=== PATIENT | male | born 1985 | race Caucasian/White ===

== ENCOUNTER 2019-06-04 12:31 | Emergency (ER) | payer OTHER, SELFPAY ==
[2019-06-04 12:39] VITALS: BP 106/51; PULSE 95; RESP 17; TEMP 36.8; O2SAT 100
--- NOTE | 2019-06-04 15:05 | ED.SKABFB ---
HPI - Skin/Abscess/Foreign Bdy General Chief complaint: Skin/Abscess/Foreign Body Stated complaint: KNEE WOUND Time Seen by Provider: 06/04/19 13:46 Source: patient Mode of arrival: ambulatory Limitations: no limitations History of Present Illness HPI narrative: Patient presents with chief complaint of swelling erythema to the anterior aspect of his right knee. Patient states last he had the [facility] I&D [facility] or [facility]. Patient states he was given a prescription for Bactrim but he only has been taking it once daily. Patient states these swelling to the anterior aspect of his right knee has continued to be present. Patient states the area started draining a large amount however when he takes off his bandage he sees some light green drainage. Patient denies fever, chills, nausea, vomiting, streaking of erythema, loss of range of motion to the joint. Patient states he is allergic to penicillin but denies allergies to any other medications. Patient states he has had cellulitis in the past and had good results with clindamycin. Related Data Home Medications Medication Instructions Recorded Confirmed metoprolol tartrate 25 mg PO BID 06/04/19 sulfamethoxazole-trimethoprim 1 tablet PO Q12H 06/04/19 [Bactrim DS] Allergies Allergy/AdvReac Type Severity Reaction Status Date / Time Penicillins Allergy Mild Verified 12/11/18 19:27 Review of Systems Review of Systems: Narrative: CONSTITUTIONAL: Denies fever, chills, or sweats. EYES: Denies visual changes, redness, or discharge. ENT: Denies rhinorrhea, congestion, sore throat, or otalgia. CARDIOVASCULAR: Denies chest pain, palpitations, or edema. RESPIRATORY: Denies cough or dyspnea. GASTROINTESTINAL: Denies abdominal pain, nausea, vomiting, or diarrhea. GENITOURINARY: Denies dysuria or hematuria. SKIN: Reports erythema and swelling right knee. MUSCULOSKELETAL: Denies back pain, joint pain, or myalgia. NEUROLOGIC: Denies headache, numbness, dizziness, or weakness. PSYCHIATRIC: Denies anxiety or depression. PMFSH Social History Social History Gender identity (if verbalized by the patient): Male Exam Narrative: Exam Narrative: GENERAL: Well-appearing, well-nourished, and in no acute distress. HEAD: Normocephalic, atraumatic. EYES: PERRLA and EOMI. ENT: Nares clear, no rhinorrhea or epistaxis. Mucous membranes moist. Oropharynx without tonsillar hypertrophy exudate or other lesions. Bilateral TMs pearly hardin nonbulging NECK: Supple. No adenopathy or masses. No carotid bruits or JVD CHEST: Clear to auscultation. No respiratory distress. No wheezes rales or rhonchi HEART: Regular rate and rhythm. No murmur heard. Normal peripheral pulses. EXTREMITIES: Normal range of motion. Small abscesses with surrounding erythema to the anterior aspect of right knee. There is no streaking, circumferential cellulitis. Minimal drainage noted to dressing but unable to express discharge by pressing the area. SKIN: Warm, dry, no rash. NEURO: No focal deficits. Alert and oriented x3. PSYCH: Normal mood and affect. Course Vital Signs Vital signs: Vital Signs Temperature 98.3 F 06/04/19 12:39 Pulse Rate 95 06/04/19 12:39 Respiratory Rate 17 06/04/19 12:39 Blood Pressure 106/51 L 06/04/19 12:39 Pulse Oximetry 100 06/04/19 12:39 Temperature 98.3 F 06/04/19 12:39 Pulse Rate 95 06/04/19 12:39 Respiratory Rate 17 06/04/19 12:39 Blood Pressure 106/51 L 06/04/19 12:39 Pulse Oximetry 100 06/04/19 12:39 Procedures Abscess I/D lower extremity: Side (if applicable): right Local Anesthetic: lidocaine 1% (With epinephrine) Amount of anesthesia used (mL): 2 Technique: incised with #11 blade Irrigation: Yes Packing used?: none I&D Results: Pus (Very small amount) Abcess I&D Additional Comments: Patient tolerated procedure well. Area was then flushed with saline. Wound care instruct
== END 2019-06-04 16:15 | disposition home or self-care (01) ==
PROVIDERS: Emergency Provider Emergency Medicine
DX: L02.415 Cutaneous abscess of right lower limb (principal)
CPT/HCPCS: 10060; 99283

== ENCOUNTER 2020-12-06 13:57 | Emergency (ER) | payer OTHER, SELFPAY ==
--- NOTE | 2020-12-06 14:39 | PC.NURSE ---
Pt called for triage by ender meza, no answer.
--- NOTE | 2020-12-06 14:58 | PC.NURSE ---
Addendum entered by Tracy Blue RN 12/06/20 15:03: No answer Original Note: Called for triage second time at this time.
--- NOTE | 2020-12-06 15:10 | PC.NURSE ---
Pt called at this time for triage, no answer x3.
== END 2020-12-06 15:10 | disposition left against medical advice (07) ==
DX: Z53.21 Procedure and treatment not carried out due to patient leaving prior to being seen by health care provider (principal)
CPT/HCPCS: 99199

== ENCOUNTER 2021-03-28 21:30 | Emergency (ER) | payer OTHER, SELFPAY ==
[2021-03-28] VITALS (9 sets, daily range): BP systolic 99–110; BP diastolic 57–63; PULSE 57–65; RESP 12–17; TEMP 36.6–36.9; O2SAT 98–100
--- NOTE | ~2021-03-28 | XR_ITS ---
EXAMINATION: XR chest 2V EXAM DATE: 03/28/2021 21:57 INDICATION: Chest pain, weakness. History of arrhythmia. TECHNIQUE: Frontal and lateral projections of the chest obtained and reviewed. Comparison is made to prior examination from 05/11/2015. FINDINGS: There is cardiac monitoring device. The lungs are hyperinflated which can be seen with ram car operator artur obstructive pulmonary disease (a clinical diagnosis of functional impairment), but is not diagnos tic of it. Narrow cardiac silhouette from the hyperinflated lungs. No confluent consolidation, pneumo thorax or pleural effusion suspected. There are no osseous abnormalities identified. IMPRESSION: Hyperinflation. Reviewed, dictated and finalized at location [facility] IMPRESSION: Hyperinflation.
--- NOTE | 2021-03-28 21:37 | ECG_ITS ---
Measurements Intervals [place] Rate: 62 P: 15 CO: 102 QRS: 71 QRSD: 94 T: 61 QT: 404 QTc: 411 Interpretive Statements SINUS RHYTHM WITH SHORT CO INTERVAL INCOMPLETE RIGHT BUNDLE BRANCH BLOCK BASELINE ARTIFACT- I, II, III BORDERLINE ECG Electronically Signed On 03-28-2021 22:06:19 BUSINESS OFFICE REPRESENTATIVE by Jake Lloyd D.O.
[2021-03-28 22:14] LABS: Basophils Percent Auto 0.5 % (0.2-1.2); Eosinophils Absolute Auto 0.4 K/mm3 (0-0.3); Eosinophils Percent Auto 5.9 % (0-4.4); Hematocrit 42.7 % (42.0-52.0); Hemoglobin 14.5 g/dL (14.0-18.0); Immature Granulocyte Absolute 0.02 K/mm3 (0.00-0.031); Immature Granulocyte Percent A 0.3 % (0-0.5); Lymphocytes Absolute Auto 2.01 K/mm3 (0.9-3.2); Lymphocytes Percent Auto 30.3 % (18.3-44.2); Mean Corpuscular Hemoglobin 31.5 pg (26-34); Mean Corpuscular Volume 92.6 fl (80-100); Mean Platelet Volume 11.4 fl (7.4-10.4); Monocytes Absolute Auto 0.6 K/mm3 (0.1-0.6); Monocytes Percent Auto 8.3 % (2.6-8.5); Neutrophils Absolute Auto 3.6 K/mm3 (1.3-6.7); Neutrophils Percent Auto 54.7 % (45.5-73.1); Platelet Count Result 137 k/mm3 (150-375); Red Blood Count 4.61 M/mm3 (4.6-6.20); Red Cell Distribution Width 11.9 % (11.5-14.5); White Blood Count 6.6 K/mm3 (4.5-10.0)
[2021-03-28 22:24] LABS: Alanine Aminotransferase 28 U/L (4-50); Albumin Level 4.3 g/dL (3.5-5.1); Alkaline Phosphatase 63 U/L (38-126); Anion Gap 8 mmol/L (8-16); Aspartate Amino Transferase 25 U/L (17-59); Bilirubin,Total 0.5 mg/dL (0.2-1.3); Blood Urea Nitrogen 17 mg/dL (9-20); Calcium 8.6 mg/dL (8.4-10.2); Carbon Dioxide 28 mmol/L (22-30); Chloride 101 mmol/L (98-107); Estimated Glomerular Filt Rate > 60; Glucose 131 mg/dL (65-110); Lipase 91 U/L (23-300); Potassium 3.3 mmol/L (3.4-5.0); Sodium 137 mmol/L (137-145)
[2021-03-28 22:27] LABS: INR 1.1
[2021-03-28 22:28] LABS: Partial Thromboplastin Time 30.1 SECONDS (22.3-36.8)
[2021-03-28 22:36] LABS: Troponin I 0.017 ng/mL (0.000-0.034)
--- NOTE | 2021-03-28 23:01 | PC.NURSE ---
0103 Corbin from [facility] calls to speak with this nurse and ERP in regards to patient. This nurse updates him on patient condition and labs. Corbin requests to speak with ERP. ERP notified.
--- NOTE | 2021-03-28 23:13 | PC.NURSE ---
ERP in room speaking with patient at this time.
--- NOTE | 2021-03-28 23:19 | ED.WEAKNESS ---
HPI - Weakness General Chief complaint: Weakness Stated complaint: Weakness Time Seen by Provider: 03/28/21 22:34 Source: patient History of Present Illness HPI Narrative: Patient presents with generalized weakness and fatigue. Patient ports a history of Wayne's thyroiditis as well as a history of SVT. Patient is currently being evaluated by EP cardiology and has further evaluation and likely ablation in the next couple weeks. Tonight he felt palpitations in his chest which is typically how his SVT starts and then developed difficulty breathing lightheadedness and a racing heart. Reports his took his pulse and it was greater than 200. He took his metoprolol and called an ambulance. On arrival to the ER he reports he continues to feel fatigued but he feels improved and feels like his heart is in a normal rhythm. Denies any recent fevers, cough, congestion. Related Data Home Medications Medication Instructions Recorded Confirmed metoprolol tartrate 25 mg PO BID 06/04/19 levothyroxine 03/28/21 lisinopril 03/28/21 Allergies Allergy/AdvReac Type Severity Reaction Status Date / Time Penicillins Allergy Mild Other Verified 03/28/21 21:38 Review of Systems Review of Systems: CONSTITUTIONAL: Denies fever, chills, or sweats. EYES: Denies visual changes, redness, or discharge. ENT: Denies rhinorrhea, congestion, sore throat, or otalgia. CARDIOVASCULAR: Denies chest pain, or edema. RESPIRATORY: Denies cough or dyspnea. GASTROINTESTINAL: Denies abdominal pain, nausea, vomiting, or diarrhea. GENITOURINARY: Denies dysuria or hematuria. SKIN: Denies rash or itching. MUSCULOSKELETAL: Denies back pain, joint pain, or myalgia. NEUROLOGIC: Denies headache, numbness, dizziness, or focal weakness. PSYCHIATRIC: Denies anxiety or depression. All systems reviewed & are unremarkable except as noted in HPI and below PMFSH Past Medical History Medical History (Updated 03/28/21 @ 23:26 by Tyler Brar MD) SVT (supraventricular tachycardia) Social History Social History Gender identity (if verbalized by the patient): Male Exam Narrative: GENERAL: Well-appearing, well-nourished, and in no acute distress. HEAD: Normocephalic, atraumatic. EYES: PERRLA and EOMI. ENT: Nares clear, no rhinorrhea or epistaxis. Mucous membranes moist. NECK: Supple. No masses. No JVD CHEST: Clear to auscultation. No respiratory distress. No wheezes rales or rhonchi HEART: Regular rate and rhythm. No murmur heard. Normal peripheral pulses. ABDOMEN: Soft, nontender, nondistended, normal active bowel sounds. EXTREMITIES: Normal range of motion. No edema. SKIN: Warm, dry, no rash. NEURO: No focal deficits. Alert and oriented x3. PSYCH: Normal mood and affect. Course Reevaluation(s) Reevaluation #1: Patient is resting comfortably. Results reviewed with patient. Patient was offered interrogation of his monitor however required in person evaluation by the tech. Patient did not want to wait as symptoms consistent with his SVT. With a negative work-up thus far and patient returned to normal sinus rhythm he is appropriate for continued outpatient monitoring and was instructed to call his EP warehouse receiving clerk tomorrow morning. Date: 03/28/21 Time: 23:22 Vital Signs Vital signs: Vital Signs Temperature 36.9 C 03/28/21 21:29 Pulse Rate 64 03/28/21 21:29 Respiratory Rate 14 03/28/21 21:29 Blood Pressure 110/58 L 03/28/21 21:29 Pulse Oximetry 100 03/28/21 21:29 Temperature 36.6 C 03/28/21 23:39 Pulse Rate 59 L 03/28/21 23:39 Respiratory Rate 13 03/28/21 23:39 Blood Pressure 100/57 L 03/28/21 23:39 Pulse Oximetry 99 03/28/21 23:39 MDM - Weakness MDM Narrative Medical decision making narrative: H&P as above, vss, pt looks clinically well, exam reassuring, labs clinically unremarkable, img clinically unremarkable, additional labs/img considered, symptomatic
== END 2021-03-28 23:46 | disposition home or self-care (01) ==
PROVIDERS: Emergency Provider Emergency Medicine
DX: I47.1 Supraventricular tachycardia (principal); E06.3 Autoimmune thyroiditis; I45.10 Unspecified right bundle-branch block
CPT/HCPCS: 36415; 71046; 80053; 83690; 84484; 85025; 85610; 85730; 93005; 99284

== ENCOUNTER 2021-04-20 17:09 | Emergency (ER) | payer OTHER, SELFPAY ==
[2021-04-20 17:14] VITALS: BP 109/73; PULSE 72; RESP 16; TEMP 37.1; O2SAT 100
--- NOTE | 2021-04-20 19:28 | PC.NURSE ---
Pt called for vitals at this time, no response.
--- NOTE | 2021-04-20 20:25 | PC.NURSE ---
no answer x2 for room
== END 2021-04-21 01:03 | disposition left against medical advice (07) ==
DX: L76.22 Postprocedural hemorrhage of skin and subcutaneous tissue following other procedure (principal)
CPT/HCPCS: 99199

== ENCOUNTER 2021-05-05 22:04 | Emergency (ER) | payer OTHER, SELFPAY ==
[2021-05-05 22:07] VITALS: BP 127/84; PULSE 82; RESP 18; TEMP 36.4; O2SAT 100
--- NOTE | 2021-05-05 22:07 | ECG_ITS ---
Measurements Intervals [place] Rate: 78 P: 60 CT: 141 QRS: 67 QRSD: 90 T: 51 QT: 387 QTc: 441 Interpretive Statements SINUS RHYTHM NORMAL ECG Electronically Signed On 05-06-2021 7:09:59 BOOKKEEPING TEACHER by Jake Lloyd D.O.
[2021-05-05 22:37] VITALS: BP 117/68; PULSE 71; RESP 16; O2SAT 99
--- NOTE | 2021-05-05 22:54 | PC.NURSE ---
attempted to call [facility]/surg nurse will have to call back
[2021-05-06 00:08] VITALS: BP 114/68; PULSE 75; RESP 16; O2SAT 100
--- NOTE | 2021-05-06 00:25 | ED.ARRPALP ---
HPI - Arrhythmia/Palpitations General Chief Complaint: Arrhythmia/Palpitations Stated Complaint: Heart skipping beats Time Seen by Provider: 05/05/21 23:34 History of Present Illness HPI narrative: Patient is a 36-year-old male who presents ER with sensation of his heart skipping beats. Patient has history of SVT and atrial fibrillation. He underwent ablation surgery earlier this month. He is followed by [facility]. Reports he is on anticoagulation. No chest pain or chest pressure. No loss of consciousness or dizziness. He feels his heart skipped and this concerns him. Related Data Home Medications Medication Instructions Recorded Confirmed metoprolol tartrate 25 mg PO BID 06/04/19 levothyroxine 03/28/21 lisinopril 03/28/21 Allergies Allergy/AdvReac Type Severity Reaction Status Date / Time Penicillins Allergy Mild Other Verified 03/28/21 21:38 Review of Systems Review of Systems: All systems reviewed & are unremarkable except as noted in HPI and below Constitutional: Constitutional: Denies chills, Denies fever(s) and Denies weakness ENT: Denies nasal congestion and Denies sore throat Cardiovascular: Cardiovascular: Denies chest pain, Denies rapid heart rate and Denies radiating jaw, neck or arm pain Comments: Palpitations Respiratory: Respiratory: Denies cough, Denies dyspnea and Denies wheezing Neurologic: Denies syncope, Denies headache(s), Denies focal weakness and Denies numbness PMFSH Past Medical History Medical History (Updated 05/06/21 @ 07:57 by Bob Vivar MD) Atrial fibrillation SVT (supraventricular tachycardia) Surgical History Surgical History (Updated 05/06/21 @ 07:57 by Bob Vivar MD) H/O cardiac radiofrequency ablation Social History Social History Gender identity (if verbalized by the patient): Male Exam Narrative: GENERAL: Well-appearing, well-nourished, and in no acute distress. HEAD: Normocephalic, atraumatic. CHEST: Clear to auscultation. No respiratory distress. HEART: Regular rate and rhythm. Normal peripheral pulses. ABDOMEN: Soft, nontender, nondistended. EXTREMITIES: Normal range of motion. No edema. SKIN: Warm, dry, no rash. NEURO: Alert and oriented x3. PSYCH: Normal mood and affect. Course Course Emergency Course: Discussed symptoms are likely related to PVCs. Before I could do more evaluation patient told the nurse that he needed to go to work and walked out of the ER. Vital Signs Vital signs: Vital Signs Temperature 97.6 F 05/05/21 22:07 Pulse Rate 82 05/05/21 22:07 Respiratory Rate 18 05/05/21 22:07 Blood Pressure 127/84 05/05/21 22:07 Pulse Oximetry 100 05/05/21 22:07 Temperature 97.6 F 05/05/21 22:07 Pulse Rate 75 05/06/21 00:08 Respiratory Rate 16 05/06/21 00:08 Blood Pressure 114/68 05/06/21 00:08 Pulse Oximetry 100 05/06/21 00:08 Discharge Plan Discharge Clinical Impression: Palpitations Patient Disposition: Left Against Medical Advice Condition: Serious Prescriptions: No Action metoprolol tartrate 25 mg Tablet 25 mg PO BID RF: 0 levothyroxine 50 mcg tablet RF: 0 lisinopril 5 mg tablet RF: 0 Follow-up/Referrals: PHYSICIAN NOT ON STAFF,NONSTAFF [Primary Care Provider] -
== END 2021-05-06 00:20 | disposition left against medical advice (07) ==
PROVIDERS: Emergency Provider Emergency Medicine
DX: R00.2 Palpitations (principal); I48.91 Unspecified atrial fibrillation; Z79.01 Long term (current) use of anticoagulants
CPT/HCPCS: 93005; 99283

== ENCOUNTER 2021-07-22 13:24 | Emergency (ER) | payer OTHER, SELFPAY ==
[2021-07-22 13:27] VITALS: BP 120/65; PULSE 52; RESP 14; TEMP 36.6; O2SAT 99
--- NOTE | 2021-07-22 13:43 | ED.DENTAL ---
HPI - Dental/Oral General Chief complaint: Dental/Oral Stated complaint: dental pain Time Seen by Provider: 07/22/21 13:26 Source: RN notes reviewed History of Present Illness HPI Narrative: Patient presents emergency department from home for dental pain. Patient states pain began 2 days ago. Pain is located over the front upper anterior tooth states he has history of dental caries and chipped teeth states he has had problems with you before but does not currently have a dentist he denies any fevers or chills ear pain difficulty swallowing or any other symptoms not take anything for pain today. Patient drove himself to the emergency department Related Data Home Medications Medication Instructions Recorded Confirmed metoprolol tartrate 25 mg PO BID 06/04/19 levothyroxine 03/28/21 lisinopril 03/28/21 Allergies Allergy/AdvReac Type Severity Reaction Status Date / Time Penicillins Allergy Mild Other Verified 03/28/21 21:38 Review of Systems Review of Systems: Gen.: Denies fevers or chills HEENT: See HPI Neuro: Denies numbness, tingling, weakness Skin: Denies rash Endo: Denies DM PMFSH Past Medical History Medical History Atrial fibrillation SVT (supraventricular tachycardia) Surgical History Surgical History (Updated 05/06/21 @ 07:57 by Bob Vivar MD) H/O cardiac radiofrequency ablation Social History Social History Gender identity (if verbalized by the patient): Male Exam Narrative: APPEARANCE: No acute distress, nontoxic, resting in bed HEENT: Normocephalic, atraumatic, TMs clear bilaterally, nares patent, oral mucosa moist, airway patent, tooth #7 is carious and tender palpation with erythema of the gum no fluctuance no swelling over the overlying face RESPIRATORY: No respiratory distress MUSCULOSKELETAl: Moves all extremities. NEURO: Awake and alert. Following commands, speech normal, no focal deficits SKIN:: Warm, dry. Normal Color PSYCHIATRIC: Normal affect/mood Course Course Emergency Course: Discussed with patient results of workup and diagnosis. Discussed need for follow-up with primary care, proper use of medication, and reasons to return to the emergency department. Patient understands and agrees to current treatment plan Vital Signs Vital signs: Vital Signs Temperature 97.9 F 07/22/21 13:27 Pulse Rate 52 L 07/22/21 13:27 Respiratory Rate 14 07/22/21 13:27 Blood Pressure 120/65 07/22/21 13:27 Pulse Oximetry 99 07/22/21 13:27 Temperature 97.9 F 07/22/21 13:27 Pulse Rate 52 L 07/22/21 13:27 Respiratory Rate 14 07/22/21 13:27 Blood Pressure 120/65 07/22/21 13:27 Pulse Oximetry 99 07/22/21 13:27 Discharge Plan Discharge Clinical Impression: Abscess, dental Patient Disposition: Home, Self-Care Condition: Stable Instructions: Antibiotic Form, Dental Abscess (ED) Additional Instructions: Return for increasing pain fever or any other symptoms of concern Prescriptions: New ibuprofen [IBU] 600 mg tablet 600 mg PO Q6H PRN (Reason: pain) Qty: 20 RF: 0 clindamycin HCl 300 mg capsule 300 mg PO Q8H 10 Days Qty: 30 RF: 0 No Action metoprolol tartrate 25 mg Tablet 25 mg PO BID RF: 0 levothyroxine 50 mcg tablet RF: 0 lisinopril 5 mg tablet RF: 0 Follow-up/Referrals: [facility] [place] [Outside] - 2 Days [facility] [Outside] - 2 Days PHYSICIAN NOT ON STAFF,NONSTAFF [Primary Care Provider] - Stand Alone Forms: Work/School Release IP Time of Disposition: 13:44
[2021-07-22] MEDS: IBUPROFEN 600 MG TABLET PO (13:54)
[2021-07-22] MEDS: CLINDAMYCIN HCL 150 MG CAP 450 MG PO (13:54)
== END 2021-07-22 13:59 | disposition home or self-care (01) ==
LOC: ANHED 13:50
PROVIDERS: Emergency Provider Emergency Medicine
DX: K04.7 Periapical abscess without sinus (principal); I48.91 Unspecified atrial fibrillation
CPT/HCPCS: 99283; A9270

== ENCOUNTER 2021-07-24 02:36 | Emergency (ER) | payer OTHER, SELFPAY ==
[2021-07-24 02:37] VITALS: BP 112/60; PULSE 62; RESP 17; TEMP 36.4; O2SAT 100
[2021-07-24] MEDS: BENZOCAINE (*SP) 60 ML SPRAY CAN (HURRICAINE) 1 SPRAY MUCOUS MEM (03:10)
--- NOTE | 2021-07-24 03:25 | ED.GENADULT ---
HPI - General Adult General Chief complaint: Dental/Oral Stated complaint: Right facial swelling, dental pain Time Seen by Provider: 07/24/21 02:38 Source: patient and RN notes reviewed History of Present Illness HPI narrative: 36-year-old male presented emerge department for evaluation of worsening facial swelling. Patient was recently evaluated for dental pain and facial swelling and was started on clindamycin. Patient states he is taken 1 to 2 days of the antibiotics but feels that his facial swelling has worsened. Patient does have very poor dentition. Patient denies any difficulty breathing or swallowing. Patient's primary complaint is the facial swelling associated with pain at the root of the incisors. Related Data Home Medications Medication Instructions Recorded Confirmed metoprolol tartrate 25 mg PO BID 06/04/19 levothyroxine 03/28/21 lisinopril 03/28/21 Allergies Allergy/AdvReac Type Severity Reaction Status Date / Time Penicillins Allergy Mild Other Verified 03/28/21 21:38 Review of Systems Review of Systems: CONSTITUTIONAL: Denies fever, chills, or sweats. EYES: Denies visual changes, redness, or discharge. ENT: Dental pain and facial swelling CARDIOVASCULAR: Denies chest pain, palpitations, or edema. RESPIRATORY: Denies cough or dyspnea. GASTROINTESTINAL: Denies abdominal pain, nausea, vomiting, or diarrhea. GENITOURINARY: Denies dysuria or hematuria. SKIN: Denies rash or itching. MUSCULOSKELETAL: Denies back pain, joint pain, or myalgia. NEUROLOGIC: Denies headache, numbness, or weakness. PMFSH Past Medical History Medical History Atrial fibrillation SVT (supraventricular tachycardia) Surgical History Surgical History (Updated 05/06/21 @ 07:57 by Bob Vivar MD) H/O cardiac radiofrequency ablation Social History Social History Gender identity (if verbalized by the patient): Male Exam Narrative: APPEARANCE: Well appearing, no pain, no distress, well-nourished. HEAD: normocephalic, atraumatic. Right-sided facial swelling EYES: PERRLA/EOMI, conjunctivae clear. NOSE: Normal no drainage EARS:TMS clear with good light reflex. THROAT: Pharynx clear, no exudate. No submandibular or throat swelling. Normal posterior pharynx Mouth: Dental abscess noted. NECK: Supple. No adenopathy, no masses. RESPIRATORY: Airway patent, respirations nonlabored. Clear to auscultation bilaterally, no rales, rhonchi, wheezing. Course Course Emergency Course: Patient's abscess was drained as described in the procedure note. No complications. Patient did feel improved after treatment. Patient was encouraged to continue taking antibiotics as directed. All questions concerns were addressed. Vital Signs Vital signs: Vital Signs Temperature 97.5 F L 07/24/21 02:37 Pulse Rate 62 07/24/21 02:37 Respiratory Rate 17 07/24/21 02:37 Blood Pressure 112/60 07/24/21 02:37 Pulse Oximetry 100 07/24/21 02:37 Temperature 97.5 F L 07/24/21 02:37 Pulse Rate 62 07/24/21 02:37 Respiratory Rate 17 07/24/21 02:37 Blood Pressure 112/60 07/24/21 02:37 Pulse Oximetry 100 07/24/21 02:37 Procedures Abscess I/D oral: Date of Incision: 07/24/21 Time of Incision: 03:28 Sedation/analgesia: none Local Anesthetic: other anesthetic (Hurricaine spray) Technique: incised with #11 blade Amount of fluid expressed (mL): 3 Irrigation: Yes Packing used?: none I&D Results: Pus and Blood Medical Decision Making Vital Signs Vital Signs: Vital Signs Temperature 97.5 F L 07/24/21 02:37 Pulse Rate 62 07/24/21 02:37 Respiratory Rate 17 07/24/21 02:37 Blood Pressure 112/60 07/24/21 02:37 Pulse Oximetry 100 07/24/21 02:37 Temperature 97.5 F L 07/24/21 02:37 Pulse Rate 62 07/24/21 02:37 Respiratory Rate
[2021-07-24 03:38] VITALS: BP 112/64; PULSE 72; RESP 18; TEMP 36.2; O2SAT 100
== END 2021-07-24 03:42 | disposition home or self-care (01) ==
PROVIDERS: Emergency Provider Emergency Medicine
DX: K04.7 Periapical abscess without sinus (principal); I48.91 Unspecified atrial fibrillation
CPT/HCPCS: 41800; 99283; A9270

== ENCOUNTER 2021-12-26 19:51 | Emergency (ER) | payer OTHER, SELFPAY ==
--- NOTE | ~2021-12-26 | XR_ITS ---
EXAMINATION: XR chest 2V Exam Date/Time: 12/26/2021 20:45 CDT HISTORY: HEART PALPITATIONS FOLLOWED BY CHEST PAIN Comparison: 03/28/2021. RESULT: Lines, tubes, and devices: Loop recorder. Lungs and pleura: Clear. Cardiomediastinal silhouette: Stable. Other: No acute osseous or upper abdominal finding. IMPRESSION: No acute cardiopulmonary process. Reviewed, dictated and finalized at location K.
[2021-12-26 20:01] VITALS: BP 127/71; PULSE 70; RESP 16; O2SAT 100
--- NOTE | 2021-12-26 20:24 | ECG_ITS ---
Measurements Intervals [place] Rate: 69 P: 64 [place]: 143 QRS: 66 QRSD: 99 T: 42 QT: 430 QTc: 462 Interpretive Statements SINUS RHYTHM NORMAL ECG COMPARED TO ECG 05/05/2021 22:13:35 NO SIGNIFICANT CHANGES Electronically Signed On 12-27-2021 16:13:40 CDT by Thomas Anaya M.D.
--- NOTE | 2021-12-26 20:41 | ED.GENADULT ---
HPI - General Adult General Chief complaint: Chest Pain Stated complaint: Chest pain Time Seen by Provider: 12/26/21 19:59 History of Present Illness HPI narrative: 36-year-old male with history of atrial fibrillation, SVT and Wayne's thyroiditis presenting the emergency department for evaluation of brief episode of heart palpitation with associated chest pain. Patient states approximate 45 minutes prior to arrival he had just finished dinner and was resting when he had onset of what felt to be an irregular heartbeat. Patient did check his EKG with a heart rate in the 70s. Upon arrival to emergency room patient is normal sinus. Patient states that he does feel improved at this time. Patient does take metoprolol, on amlodipine and levothyroxine. Patient is no longer on Eliquis as this was stopped by his physicians. Patient follows up with a elastic assembler at [facility], Dr. Lyons Related Data Home Medications Medication Instructions Recorded Confirmed metoprolol tartrate 25 mg tablet 25 mg PO BID 06/04/19 levothyroxine 50 mcg tablet 03/28/21 lisinopril 5 mg tablet 03/28/21 Allergies Allergy/AdvReac Type Severity Reaction Status Date / Time Penicillins Allergy Mild Other Verified 03/28/21 21:38 Review of Systems Review of Systems: CONSTITUTIONAL: Denies fever, chills, or sweats. EYES: Denies visual changes, redness, or discharge. ENT: Denies rhinorrhea, congestion, sore throat, or otalgia. CARDIOVASCULAR: See HPI RESPIRATORY: Denies cough or dyspnea. GASTROINTESTINAL: Denies abdominal pain, nausea, vomiting, or diarrhea. GENITOURINARY: Denies dysuria or hematuria. SKIN: Denies rash or itching. MUSCULOSKELETAL: Denies back pain, joint pain, or myalgia. NEUROLOGIC: Denies headache, numbness, or weakness. PSYCHIATRIC: Denies anxiety or depression. [facility] Past Medical History Medical History Atrial fibrillation SVT (supraventricular tachycardia) Surgical History Surgical History (Updated 05/06/21 @ 07:57 by Bob Vivar MD) H/O cardiac radiofrequency ablation Social History Social History Gender identity (if verbalized by the patient): Male Exam Narrative: APPEARANCE: Well appearing, no pain, no distress, well-nourished. HEAD: normocephalic, atraumatic. EYES: PERRLA/EOMI, conjunctivae clear. NOSE: Normal no drainage NECK: Supple. No adenopathy, no masses. RESPIRATORY: Airway patent, respirations nonlabored. Clear to auscultation bilaterally, no rales, rhonchi, wheezing. CARDIOVASCULAR: Regular rate and rhythm without murmurs rubs or gallops. ABDOMINAL: Soft, nontender, nondistended, normal bowel sounds MUSCULOSKELETAL: Moves all extremities. Strength/ROM intact, No edema, No calf tenderness. NEURO: Alert. Cranial nerves II through XII intact. Grossly intact SKIN: Warm, dry. Normal Color PSYCHIATRIC: Normal affect/mood. Course Course Emergency Course: Patient eloped prior to completing his medical work-up. Vital Signs Vital signs: Vital Signs Pulse Rate 70 12/26/21 20:01 Respiratory Rate 16 12/26/21 20:01 Blood Pressure 127/71 12/26/21 20:01 Pulse Oximetry 100 12/26/21 20:01 Oxygen Delivery Room Air 12/26/21 20:01 Temperature 98.3 F 12/26/21 20:59 Pulse Rate 62 12/26/21 20:59 Respiratory Rate 18 12/26/21 20:59 Blood Pressure 104/62 12/26/21 20:59 Pulse Oximetry 100 12/26/21 20:59 Oxygen Delivery Room Air 12/26/21 20:01 Medical Decision Making Vital Signs Vital Signs: Vital Signs Pulse Rate 70 12/26/21 20:01 Respiratory Rate 16 12/26/21 20:01 Blood Pressure 127/71 12/26/21 20:01 Pulse Oximetry 100 12/26/21 20:01 Oxygen Delivery Room Air 12/26/21 20:01 Temperature 98.3 F 12/26/21 20:59 Pulse Rate 62 12/26/21 20:59 Respiratory Rate 18 12/26/21 20:59 Blood Pressure 104/62
[2021-12-26 20:58] LABS: Basophils Percent Auto 0.5 % (0.2-1.2); Eosinophils Absolute Auto 0.3 K/mm3 (0-0.3); Eosinophils Percent Auto 4.5 % (0-4.4); Hematocrit 40.9 % (42.0-52.0); Hemoglobin 13.8 g/dL (14.0-18.0); Immature Granulocyte Absolute 0.01 K/mm3 (0.00-0.031); Immature Granulocyte Percent A 0.2 % (0-0.5); Immature Platelet Fraction Pct 6.2 % (0.9-11.2); Lymphocytes Absolute Auto 1.66 K/mm3 (0.9-3.2); Lymphocytes Percent Auto 27.8 % (18.3-44.2); Mean Corpuscular HGB Conc 33.7 g/dl (32-36); Mean Corpuscular Hemoglobin 30.9 pg (26-34); Mean Corpuscular Volume 91.7 fl (80-100); Monocytes Absolute Auto 0.5 K/mm3 (0.1-0.6); Monocytes Percent Auto 8.4 % (2.6-8.5); Neutrophils Absolute Auto 3.5 K/mm3 (1.3-6.7); Neutrophils Percent Auto 58.6 % (45.5-73.1); Platelet Count Result 135 k/mm3 (150-375); Red Blood Count 4.46 M/mm3 (4.6-6.20); Red Cell Distribution Width 12.6 % (11.5-14.5)
[2021-12-26 20:59] VITALS: BP 104/62; PULSE 62; RESP 18; TEMP 36.8; O2SAT 100
[2021-12-26 21:08] LABS: Alanine Aminotransferase 31 U/L (6-50); Albumin Level 4.4 g/dL (3.5-5.1); Alkaline Phosphatase 63 U/L (38-126); Anion Gap 11 mmol/L (8-16); Aspartate Amino Transferase 27 U/L (17-59); Bilirubin,Total 0.6 mg/dL (0.2-1.3); Blood Urea Nitrogen 22 mg/dL (9-20); Calcium 8.8 mg/dL (8.4-10.2); Carbon Dioxide 26 mmol/L (22-30); Chloride 99 mmol/L (98-107); Estimated Glomerular Filt Rate > 60; Glucose 121 mg/dL (65-110); Magnesium 2.1 mg/dL (1.6-2.3); Potassium 3.3 mmol/L (3.4-5.0); Sodium 136 mmol/L (137-145)
[2021-12-26 21:10] LABS: INR 1.1; Prothrombin Time 13.8 Seconds (11.1-14.7)
[2021-12-26 21:11] LABS: Partial Thromboplastin Time 32.8 SECONDS (22.3-36.8)
[2021-12-26 21:20] LABS: Troponin I < 0.012 ng/mL (0.000-0.034)
[2021-12-26 21:32] LABS: Appearance Urine Clear (Clear); Bilirubin Urine Negative (Negative); Blood Urine Negative (Negative); Color Urine Yellow (Yellow); Glucose Urine UA Negative (Negative); Ketones Urine Trace mg/dL (Negative); Leukocyte Esterase Ur Negative LEU/UL (Negative); Nitrate Urine Negative (Negative); Protein Urine Negative (Negative); Specific Grav Ur 1.025 (1.001-1.035); Urobilinogen Urine 0.2 mg/dL (<2.0); pH Urine 6.5 (5.0-9.0)
[2021-12-26 21:37] LABS: Mucus Urine Rare /lpf; RBC Urine 0-2 /hpf (0-2); Squamous Epithelial Cell Urine Rare /hpf (Few); WBC Urine 0-3 /hpf
[2021-12-26 21:38] LABS: Add Urine Microscopic? YES
[2021-12-26 21:41] LABS: Thyroid Stimulating Hormone Reflex 0.169 uIU/mL (0.465-4.68)
[2021-12-26 21:47] LABS: Amphetamine Screen Urine Negative (Negative); Barbiturate Screen Urine Negative (Negative); Benzodiazepines Screen Urine Negative (Negative); Cannabinoid Screen Urine Negative (Negative); Cocaine Screen Urine Negative (Negative); Methadone Screen Urine Negative (Negative); Opiate Screen Urine Negative (Negative); Phencyclidine Screen Urine Negative (Negative)
--- NOTE | 2021-12-26 22:11 | PC.NURSE ---
Per X-ray tech, pt removed monitoring equipment and ambulated out of ED unassisted.
[2021-12-26 22:12] LABS: Free T4 Free Thyroxine Reflex 2.97 ng/dL (0.78-2.19)
== END 2021-12-26 22:16 | disposition left against medical advice (07) ==
LOC: ANHED 20:11
PROVIDERS: Emergency Provider Emergency Medicine
DX: R07.9 Chest pain, unspecified (principal); R00.2 Palpitations; I48.91 Unspecified atrial fibrillation
CPT/HCPCS: 36415; 71046; 80053; 80307; 81001; 83735; 84439; 84443; 84484; 85025; 85055; 85610; 85730; 93005; 99284

== ENCOUNTER 2022-12-24 01:47 | Emergency (ER) | payer OTHER, SELFPAY ==
[2022-12-24] VITALS (10 sets, daily range): BP systolic 106–120; BP diastolic 54–73; PULSE 56–73; RESP 10–19; TEMP 36.9; O2SAT 100
--- NOTE | ~2022-12-24 | XR_ITS ---
EXAMINATION: XR chest 2V DATE: 12/24/2022 02:25 INDICATION: Chest pain. TECHNIQUE: Frontal and lateral views of the chest were obtained. COMPARISON: Chest 2 views 12/26/2021, CT abdomen and pelvis 04/19/2016 FINDINGS: There is mild scarring at the lung apices. No pleural effusion or pneumothorax. The heart s ize is normal. There is electronic implant in left anterior chest wall. IMPRESSION: 1. Stable mild scarring at the lung apices. Reviewed, dictated and finalized at location A.
--- NOTE | 2022-12-24 01:48 | ECG_ITS ---
Measurements Intervals [place] Rate: 58 P: 53 DC: 128 QRS: 68 QRSD: 90 T: 57 QT: 419 QTc: 414 Interpretive Statements SINUS BRADYCARDIA OTHERWISE NORMAL ECG COMPARED TO ECG 12/26/2021 20:08:26 SINUS BRADYCARDIA NOW PRESENT Electronically Signed On 12-25-2022 7:02:28 CDT by Blaine Cash M.D.
[2022-12-24 02:18] LABS: Basophils Percent Auto 0.4 % (0.2-1.2); Eosinophils Absolute Auto 0.3 K/mm3 (0-0.3); Eosinophils Percent Auto 5.6 % (0-4.4); Hematocrit 38.3 % (42.0-52.0); Hemoglobin 12.8 g/dL (14.0-18.0); Immature Granulocyte Absolute 0.01 K/mm3 (0.00-0.031); Immature Granulocyte Percent A 0.2 % (0-0.5); Immature Platelet Fraction Pct 9.1 % (0.9-11.2); Lymphocytes Absolute Auto 1.74 K/mm3 (0.9-3.2); Mean Corpuscular HGB Conc 33.4 g/dl (32-36); Mean Corpuscular Hemoglobin 30.3 pg (26-34); Mean Corpuscular Volume 90.8 fl (80-100); Mean Platelet Volume 11.5 fl (7.4-10.4); Monocytes Absolute Auto 0.6 K/mm3 (0.1-0.6); Monocytes Percent Auto 12.1 % (2.6-8.5); Neutrophils Absolute Auto 2.3 K/mm3 (1.3-6.7); Neutrophils Percent Auto 46.7 % (45.5-73.1); Platelet Count Result 115 k/mm3 (150-375); Red Blood Count 4.22 M/mm3 (4.6-6.20); Red Cell Distribution Width 11.6 % (11.5-14.5)
[2022-12-24 02:28] LABS: Potassium 3.5 mmol/L (3.4-5.0)
[2022-12-24 02:31] LABS: INR 1.1; Prothrombin Time 14.8 Seconds (11.1-14.7)
[2022-12-24 02:32] LABS: Partial Thromboplastin Time 31.7 SECONDS (22.3-36.8)
[2022-12-24 02:33] LABS: Alanine Aminotransferase 23 U/L (6-50); Albumin Level 3.8 g/dL (3.5-5.1); Alkaline Phosphatase 51 U/L (38-126); Anion Gap 4 mmol/L (8-16); Aspartate Amino Transferase 21 U/L (17-59); Bilirubin,Total 0.3 mg/dL (0.2-1.3); Blood Urea Nitrogen 22 mg/dL (9-20); Calcium 8.4 mg/dL (8.4-10.2); Carbon Dioxide 25 mmol/L (22-30); Chloride 104 mmol/L (98-107); Estimated CRCL calculation 106 ml/min; Estimated Glomerular Filt Rate > 60; Glucose 111 mg/dL (65-110); Lipase 130 U/L (23-300); Sodium 133 mmol/L (137-145)
[2022-12-24 02:39] LABS: Troponin I < 0.012 ng/mL (0.000-0.034)
[2022-12-24 05:25] LABS: Troponin I < 0.012 ng/mL (0.000-0.034)
--- NOTE | 2022-12-24 05:27 | ED.GENADULT ---
HPI - General Adult General Chief complaint: Chest Pain Stated complaint: hard heart beat in my chest Time Seen by Provider: 12/24/22 04:37 History of Present Illness HPI narrative: Patient a 37-year-old gentleman who presents emergency department with chief complaint of palpitations and chest discomfort. Patient reports he had an ablation for atrial fibrillation in the past and tonight was late on taking his metoprolol and noticed that his heart was beating heavier than normal but did not get tachycardic the patient reports that he decided to come to the emergency department for evaluation but took his metoprolol prior to her leaving to head to the emergency department. Patient reports upon arrival to the emergency department he started to feel better and reports that his symptoms have almost completely resolved at this point. Related Data Home Medications Medication Instructions Recorded Confirmed metoprolol tartrate 25 mg tablet 25 mg PO BID 06/04/19 levothyroxine 50 mcg tablet 03/28/21 lisinopril 5 mg tablet 03/28/21 Allergies Allergy/AdvReac Type Severity Reaction Status Date / Time Penicillins Allergy Mild Other Verified 12/24/22 03:42 Review of Systems Review of Systems: A 10 system review of systems was completed on the patient and is negative except for what is stated in the HPI. Nursing and ancillary documentation was reviewed. [facility] Past Medical History Medical History Atrial fibrillation SVT (supraventricular tachycardia) Surgical History Surgical History H/O cardiac radiofrequency ablation Social History Social History Gender identity (if verbalized by the patient): Male Exam Narrative: GENERAL: Well-appearing, well-nourished, and in no acute distress. HEAD: Normocephalic, atraumatic. EYES: PERRLA and EOMI. ENT: Nares clear, no rhinorrhea or epistaxis. Mucous membranes moist. NECK: Supple. CHEST: Clear to auscultation. No respiratory distress. HEART: Regular rate and rhythm. No murmur heard. Normal peripheral pulses. ABDOMEN: Soft, nontender, nondistended, normal active bowel sounds. EXTREMITIES: Normal range of motion. No edema. SKIN: Warm, dry, no rash. NEURO: No focal deficits. Alert and oriented x3. PSYCH: Normal mood and affect. Course Vital Signs Vital signs: Vital Signs Temperature 36.9 C 12/24/22 01:52 Pulse Rate 73 12/24/22 01:52 Respiratory Rate 19 12/24/22 01:52 Blood Pressure 106/56 L 12/24/22 01:52 Pulse Oximetry 100 12/24/22 01:52 Oxygen Delivery Room Air 12/24/22 01:52 Temperature 36.9 C 12/24/22 01:52 Pulse Rate 56 L 12/24/22 04:16 Respiratory Rate 16 12/24/22 04:16 Blood Pressure 119/64 12/24/22 04:16 Pulse Oximetry 100 12/24/22 04:16 Oxygen Delivery Room Air 12/24/22 03:40 Medical Decision Making MDM Narrative Medical decision making narrative: Differential diagnosis includes atrial fibrillation, palpitations, electrolyte abnormality, ACS Laboratory studies showed a normal CBC electrolytes are within normal limits potassium is 3.5 initial troponin was less than 0.012 delta troponin at 3 hours was also negative. Chest x-ray showed no focal infiltrate Patient has been observed in the emergency department and not showing signs of tachycardia Vital Signs Vital Signs: Vital Signs Temperature 36.9 C 12/24/22 01:52 Pulse Rate 73 12/24/22 01:52 Respiratory Rate 12/24/22 01:52 Blood Pressure 106/56 L 12/24/22 01:52 Pulse Oximetry 100 12/24/22 01:52 Oxygen Delivery Room Air 12/24/22 01:52 Temperature 36.9 C 12/24/22 01:52 Pulse Rate 56 L 12/24/22 04:16 Respiratory Rate 12/24/22 04:16 Blood Pressure 119/64 12/24/22 04:16 Pulse Oximetry 100 12/24/22 04:16 Oxygen Deliv
== END 2022-12-24 05:37 | disposition home or self-care (01) ==
PROVIDERS: Emergency Provider Emergency Medicine
DX: R00.2 Palpitations (principal); I48.91 Unspecified atrial fibrillation; R00.1 Bradycardia, unspecified
CPT/HCPCS: 36415; 71046; 80053; 83690; 84484; 85025; 85055; 85610; 85730; 93005; 99284

== ENCOUNTER 2023-05-18 20:50 | Observation (INO) | payer OTHER, SELFPAY ==
[2023-05-18] VITALS (7 sets, daily range): BP systolic 95–109; BP diastolic 63–71; PULSE 85–162; RESP 14–15; TEMP 37.2; O2SAT 100
--- NOTE | 2023-05-18 21:13 | PC.NURSE ---
EDP Dr. Campuzano at bedside for pt triage. Pt connected to continuous EKG, ekg monitor tech, and pads. Dr. Campuzano gave verbal order to give 6mg of adenosine @2104. 6mg Adenosine pushed by Conor RN @2108. No change in pt HR with first push of adenosine. Verbal order given by Dr. Campuzano to give a second push of 12mg of Adenosine. 12mg Adenosine pushed by Conor RN @2110. No change in pt rhythm. EDP gave verbal order to give 20mg of Cardizem IV push. 20mg Cardizem given IVP @2113. Pt HR now 120s-140s.
[2023-05-18] MEDS: dilTIAZem HCl INJ 25 MG/5 ML VIAL 20 MG IV PUSH (21:14)
--- NOTE | 2023-05-18 21:44 | ECG_ITS ---
Measurements Intervals [place] Rate: 94 P: [place]: 0 QRS: 69 QRSD: 91 T: 49 QT: 365 QTc: 458 Interpretive Statements ATRIAL FIBRILLATION INCOMPLETE RIGHT BUNDLE BRANCH BLOCK BASELINE ARTIFACT- V5-V6 ABNORMAL ECG COMPARED TO ECG 12/24/2022 01:56:20 ATRIAL FIBRILLATION NOW PRESENT Electronically Signed On 05-19-2023 6:33:24 WILDLIFE ECOLOGY PROFESSOR by Jake Lloyd D.O.
[2023-05-18 21:45] LABS: Basophils Percent Auto 0.2 % (0.2-1.2); Eosinophils Absolute Auto 0.2 K/mm3 (0-0.3); Eosinophils Percent Auto 3.7 % (0-4.4); Hematocrit 40.1 % (42.0-52.0); Hemoglobin 13.6 g/dL (14.0-18.0); Immature Granulocyte Absolute 0.01 K/mm3 (0.00-0.031); Immature Granulocyte Percent A 0.2 % (0-0.5); Lymphocytes Absolute Auto 1.96 K/mm3 (0.9-3.2); Lymphocytes Percent Auto 40.5 % (18.3-44.2); Mean Corpuscular HGB Conc 33.9 g/dl (32-36); Mean Corpuscular Hemoglobin 30.5 pg (26-34); Mean Corpuscular Volume 89.9 fl (80-100); Mean Platelet Volume 11.4 fl (7.4-10.4); Monocytes Absolute Auto 0.5 K/mm3 (0.1-0.6); Monocytes Percent Auto 9.3 % (2.6-8.5); Neutrophils Absolute Auto 2.2 K/mm3 (1.3-6.7); Neutrophils Percent Auto 46.1 % (45.5-73.1); Platelet Count Result 109 k/mm3 (150-375); Red Blood Count 4.46 M/mm3 (4.6-6.20); Red Cell Distribution Width 12.2 % (11.5-14.5); White Blood Count 4.8 K/mm3 (4.5-10.0)
[2023-05-18 21:55] LABS: INR 1.1; Prothrombin Time 14.9 Seconds (11.1-14.7)
[2023-05-18 21:56] LABS: Alanine Aminotransferase 26 U/L (6-50); Alkaline Phosphatase 71 U/L (38-126); Anion Gap 13 mmol/L (8-16); Aspartate Amino Transferase 24 U/L (17-59); Bilirubin,Total 0.7 mg/dL (0.2-1.3); Blood Urea Nitrogen 24 mg/dL (9-20); Calcium 8.1 mg/dL (8.4-10.2); Carbon Dioxide 17 mmol/L (22-30); Chloride 105 mmol/L (98-107); Estimated CRCL calculation 107 ml/min; Estimated Glomerular Filt Rate > 60; Glucose 130 mg/dL (65-110); Lipase 100 U/L (23-300); Magnesium 1.8 mg/dL (1.6-2.3); Partial Thromboplastin Time 32.7 SECONDS (22.3-36.8); Potassium 3.1 mmol/L (3.4-5.0); Sodium 135 mmol/L (137-145)
[2023-05-18 22:07] LABS: Troponin I < 0.012 ng/mL (0.000-0.034)
[2023-05-18] MEDS: dilTIAZem 100 MG/100 ML 100 MG/100 ML BAG IV CONT (22:32)
--- NOTE | 2023-05-18 23:03 | ED.GENADULT ---
HPI - General Adult General Chief complaint: Arrhythmia/Palpitations Stated complaint: IRREGULAR HEART RATE Time Seen by Provider: 05/18/23 21:13 History of Present Illness HPI narrative: patient had 8-year-old gentleman who presents emergency department with chief complaint of palpitations. Patient reports he has prior history of SVT in history of intermittent AFib patient reports that today he noticed he started having palpitations and felt his heart rate was up in the 180s. The patient came to the emergency department reports he did try some vagal maneuvers without success. The patient reports he takes metoprolol. Related Data Home Medications Medication Instructions Recorded Confirmed metoprolol tartrate 25 mg tablet 25 mg PO BID 06/04/19 levothyroxine 50 mcg tablet 03/28/21 lisinopril 5 mg tablet 03/28/21 Allergies Allergy/AdvReac Type Severity Reaction Status Date / Time Penicillins Allergy Mild Other Verified 12/24/22 03:42 Review of Systems Review of Systems: A 10 system review of systems was completed on the patient and is negative except for what is stated in the HPI. Nursing and ancillary documentation was reviewed. [facility] Past Medical History Medical History Atrial fibrillation SVT (supraventricular tachycardia) Surgical History Surgical History H/O cardiac radiofrequency ablation Social History Social History Gender identity (if verbalized by the patient): Male Exam Narrative: GENERAL: Well-appearing, well-nourished, and in no acute distress. HEAD: Normocephalic, atraumatic. EYES: PERRLA and EOMI. ENT: Nares clear, no rhinorrhea or epistaxis. Mucous membranes moist. NECK: Supple. CHEST: Clear to auscultation. No respiratory distress. HEART: Tachycardic rate and irregularrhythm. No murmur heard. Normal peripheral pulses. ABDOMEN: Soft, nontender, nondistended, normal active bowel sounds. EXTREMITIES: Normal range of motion. No edema. SKIN: Warm, dry, no rash. NEURO: No focal deficits. Alert and oriented x3. PSYCH: Normal mood and affect. Course Vital Signs Vital signs: Vital Signs Pulse Rate 162 H 05/18/23 21:04 Respiratory Rate 14 05/18/23 21:04 Blood Pressure 109/64 05/18/23 21:04 Pulse Oximetry 100 05/18/23 21:04 Temperature 37.2 C 05/18/23 22:30 Pulse Rate 114 H 05/18/23 22:32 Respiratory Rate 15 05/18/23 22:30 Blood Pressure 100/68 05/18/23 22:32 Pulse Oximetry 100 05/18/23 22:30 Medical Decision Making MDM Narrative Medical decision making narrative: differential diagnosis includes SVT, atrial fibrillation with rapid ventricular response. Laboratory studies were obtained which showed magnesium 1.8. Patient maintained persistent tachycardia after attempted vagal maneuvers. The patient was given adenosine which did slow his heart rate down confirmed that he was in AFib RVR patient was given Cardizem bolus and started on a Cardizem drip Vital Signs Vital Signs: Vital Signs Pulse Rate 162 H 05/18/23 21:04 Respiratory Rate 14 05/18/23 21:04 Blood Pressure 109/64 05/18/23 21:04 Pulse Oximetry 100 05/18/23 21:04 Temperature 37.2 C 05/18/23 22:30 Pulse Rate 114 H 05/18/23 22:32 Respiratory Rate 15 05/18/23 22:30 Blood Pressure 100/68 05/18/23 22:32 Pulse Oximetry 100 05/18/23 22:30 Lab Data 05/18/23 21:38 05/18/23 21:38 Labs: Lab Results 05/18/23 05/18/23 Range/Units 21:38 22:47 WBC 4.8 (4.5-10.0) K/mm3 RBC 4.46 L (4.6-6.20) M/mm3 Hgb 13.6 L (14.0-18.0) g/dL Hct 40.1 L (42.0-52.0) % MCV 89.9 (80-100) fl MCH 30.5 (26-34) pg MCHC 33.9 (32-36) g/dl RDW 12.2 (11.5-14.5) % Plt Count 109 L (150-375) k/mm3 MPV 11
[2023-05-18 23:17] LABS: Amphetamine Screen Urine Negative (Negative); Barbiturate Screen Urine Negative (Negative); Benzodiazepines Screen Urine Negative (Negative); Cannabinoid Screen Urine Negative (Negative); Cocaine Screen Urine Negative (Negative); Methadone Screen Urine Negative (Negative); Opiate Screen Urine Negative (Negative); Phencyclidine Screen Urine Negative (Negative)
[2023-05-18] MEDS: POTASSIUM CHLORIDE 20 MEQ PACKET (FOR LIQUID) 40 MEQ PO (23:18)
[2023-05-18] MEDS: MAGNESIUM SULF 2 GM/WATER 50ML 2 GM/50 ML BAG IVPB (23:18)
[2023-05-19] VITALS (13 sets, daily range): BP systolic 95–103; BP diastolic 55–72; PULSE 63–142; RESP 8–19; TEMP 36.7; O2SAT 97–100; BMI 21.4
--- NOTE | 2023-05-19 00:12 | PM.IMHP ---
H&P: HPI History of Present Illness Date/Time: 05/19/23 00:12 Chief Complaint: palpitations Narrative: This is a 38-year-old male with past medical history significant for atrial fibrillation patient is status post ablation and loop recorder. Was at work when he felt dizzy lightheaded and had palpitations. Patient has been in his usual state of health prior to this. Denies any chest pain, nausea, vomiting, fevers, rigors, chills. Patient quit smoking 2 years ago quit caffeinated drinks quit vaping as well. Patient was found to have a heart rate in the 200s. In emergency room received at the nursing and was started on Cardizem drip. Review of Systems Review of Systems: Lightheadedness, palpitations Constitutional: Constitutional: Denies chills, Denies fatigue, Denies fever(s), Denies malaise, Denies night sweats and Denies weakness Eyes: Eyes: Denies change in vision ENT: Denies dysphagia and Denies odynophagia Cardiovascular: Cardiovascular: Reports lightheadedness and Reports palpitations Respiratory: Respiratory: Denies chest congestion, Denies cough, Denies pain on inspiration and Denies dyspnea Gastrointestinal: Gastrointestinal: Denies abdominal pain, Denies dyspepsia, Denies heartburn, Denies diarrhea, Denies nausea and Denies vomiting Genitourinary: Genitourinary: Denies dysuria Musculoskeletal: Musculoskeletal: Denies back pain and Denies arthralgias Integumentary/Breasts: Skin/Breast: Denies rash Neurologic: Denies focal weakness and Denies Sensory deficit (Neuro) Psychiatric: Psychiatric: Reports no additional psychiatric complaints and Reports as per HPI Endocrine: Endocrine: Denies cold intolerance, Denies fatigue, Denies flushing, Denies heat intolerance, Denies polyphagia, Denies polydipsia and Denies palpitations Hematologic/Lymphatic: Hematologic/Lymphatic: Reports no additional hematologic/lymphatic complaints and Reports as per HPI Allergic/Immunologic: Allergic/Immunologic: Reports no additional allergic/immunologic complaints and Reports as per HPI PMFSH Past Medical History Medical History Atrial fibrillation SVT (supraventricular tachycardia) Surgical History Surgical History H/O cardiac radiofrequency ablation Family History Family History (Updated 05/19/23 @ 03:09 by Dylan Chapin RN) Sibling SVT (supraventricular tachycardia) CHF (congestive heart failure) Mitral valve anterior leaflet prolapse Myocardial infarction Sudden Father SVT (supraventricular tachycardia) CHF (congestive heart failure) Mitral valve anterior leaflet prolapse Epilepsy Social History Social History Smoking status: Former smoker Do You Feel Safe in your Home?: Yes Lack of Transportation: No Lack of Food: Never True Current Housing: I Have Housing Concerned About Future Housing: No Difficulty Paying Gas/Electric Bills: No Difficulty Paying for Meds: No Currently Unemployed: No Education: Decline to Answer Difficulty w/ Childcare or Family Care: No Gender identity (if verbalized by the patient): Male Spiritual care concerns: Yes Meds Home Medications and Allergies Home Medications Medication Instructions Recorded Confirmed Type metoprolol tartrate 25 mg tablet 25 mg PO BID 06/04/19 05/19/23 History lisinopril 5 mg tablet 5 mg PO DAILY 03/28/21 05/19/23 History levothyroxine 150 mcg tablet 150 mcg PO DAILY 05/19/23 05/19/23 History magnesium oxide 400 mg (241.3 mg 400 mg PO DAILY 05/19/23 05/19/23 History magnesium) tablet Allergies Allergy/AdvReac Type Severity Reaction Status Date / Time Penicillins Allergy Mild Other Verified 12/24/22 03:42 Vital Signs Vital Signs - 24 hr 05/18/23 21:04 05/18/23 21:28 05/18/23 21:41 Temperature Pulse R
[2023-05-19 01:03] LABS: Troponin I 0.034 ng/mL (0.000-0.034)
[2023-05-19] MEDS: POTASSIUM CHLORIDE 20 MEQ ER TABLET 40 MEQ PO (02:05)
--- NOTE | 2023-05-19 02:51 | ADMIMU ---
0015 This patient, Renetta Montano, was admitted to IMU status, and placed in Intensive Care Unit-5. Patient/family oriented to hospital policies and general routines including ID bracelet, bed and alarms, visiting hours, pain management, procedures, bathroom and other care routines, personal items, smoking policy, room service/diet, and visiting hours. Valuables list has been completed. Information on how to activate the Rapid Response Team has been discussed. Patient/Family are encouraged to report perceived risks to care and to ask questions if they do not understand what they are told or what they should do.
[2023-05-19] MEDS: LORazepam INJ (*CRX) 2 MG/ML VIAL (03:22)
[2023-05-19 04:35] LABS: Anion Gap 6 mmol/L (8-16); Blood Urea Nitrogen 19 mg/dL (9-20); Calcium 8.3 mg/dL (8.4-10.2); Carbon Dioxide 22 mmol/L (22-30); Chloride 106 mmol/L (98-107); Estimated CRCL calculation 166 ml/min; Estimated Glomerular Filt Rate > 60; Glucose 100 mg/dL (65-110); Potassium 4.8 mmol/L (3.4-5.0); Sodium 134 mmol/L (137-145)
[2023-05-19] MEDS: LEVOTHYROXINE SODIUM 150 MCG TABLET PO (07:30)
--- NOTE | 2023-05-19 10:14 | PM.IMPN ---
Progress Note: A&P Assessment and Plan (1) Atrial fibrillation with rapid ventricular response: Code(s): I48.91 - Unspecified atrial fibrillation Status: Acute Assessment and Plan: Appreciate cardiology consultation Patient currently in sinus rhythm Likely secondary to elevated levothyroxine dose with low TSH, will discharge on lower dose Metoprolol increased per Cardiology (2) SVT (supraventricular tachycardia): Code(s): I47.1 - Supraventricular tachycardia Status: Acute Assessment and Plan: Found to have atrial fibrillation after receiving Adenosine (3) Former smoker: Code(s): Z87.891 - Personal history of nicotine dependence Status: Acute Assessment and Plan: Unchanged Plan DVT prophylaxis with SCDs GI prophylaxis not indicated Code status full code Subjective Date/time seen: 05/19/23 10:14 Interval history: 38-year-old male with history of atrial fibrillation status post ablation and loop recorder implantation is presenting with dizziness and palpitations and was found to have a heart rate in the 200s and is currently being treated for AFib with RVR. No overnight events noted. No chest pain or shortness of breath. No nausea, vomiting or diarrhea. No fevers or chills. Palp resolved. Review of Systems Review of Systems: 12 point review of systems was assessed and was negative except as noted in the HPI Exam Narrative: General: No acute distress, alert and oriented per baseline HEENT: Atraumatic, normocephalic, mucous membranes moist CV: Regular rate and rhythm, S1, S2 Lungs: Clear to auscultation bilaterally, no rales or crackles noted, no wheezes, good air entry Abdomen: Soft, nontender, nondistended Extremities: Normal to inspection Skin: No rashes noted, no lesions or wounds seen Psych: Euthymic, normal affect Objective Data Vital Signs Vital Signs: Vital Signs - 24 hr 05/18/23 21:04 05/18/23 21:28 05/18/23 21:41 Temperature Pulse Rate 162 H 94 85 Respiratory Rate 14 15 15 Blood Pressure 109/64 100/70 95/70 L Pulse Oximetry 100 100 100 Oxygen Delivery 05/18/23 22:30 05/18/23 22:32 05/18/23 23:09 Temperature 98.9 F Pulse Rate 111 H 114 H 108 H Respiratory Rate 15 Blood Pressure 96/63 L 100/68 Pulse Oximetry 100 Oxygen Delivery 05/18/23 23:50 05/19/23 00:00 05/19/23 03:14 Temperature Pulse Rate 113 H Respiratory Rate 15 Blood Pressure 98/71 L Pulse Oximetry 100 Oxygen Delivery Room Air Room Air 05/19/23 04:00 05/19/23 04:00 05/19/23 04:00 Temperature 98.1 F Pulse Rate 140 H 140 H 142 H Respiratory Rate 15 Blood Pressure 95/65 L Pulse Oximetry 98 Oxygen Delivery 05/19/23 02:00 05/19/23 02:00 05/19/23 00:30 Temperature Pulse Rate 111 H 111 H 111 H Respiratory Rate 8 L Blood Pressure 98/69 L Pulse Oximetry 97 Oxygen Delivery 05/19/23 00:30 05/19/23 05:50 05/19/23 06:00 Temperature Pulse Rate 111 H 73 90 Respiratory Rate 19 Blood Pressure 100/72 Pulse Oximetry 100 Oxygen Delivery 05/19/23 08:00 05/19/23 08:00 05/19/23 08:00 Temperature 98.1 F Pulse Rate 88 83 83 Respiratory Rate 11 L Blood Pressure 97/58 L 97/58 L Pulse Oximetry 97 Oxygen Delivery Intake/Output Intake/Output: Intake & Output 05/16/23 05/17/23 05/18/23 05/19/23 23:59 23:59 23:59 23:59 Intake Total 50 Output Total 600 Balance -550 Meds/Results Medications: Active Medications Generic Name Dose Route Start Last Admin Trade Name Freq PRN Reason Stop Dose Admin Diltiazem HCl 100 mg in 100 mls @ 5 mls/hr 05/18/23 21:13 05/19/23 08:00 Cardizem 100 Mg/100 Ml IV CONT 05/19/23 17:12 5 mg/hr .Q20H STA 5 mls/hr Titration Protocol 5 MG/HR Levothyroxine Sodium 150 mcg 05/19/23 06:30 05/19/23 07:30 Levothyroxine Sodium 150 Mcg Tablet PO 150 mcg DAILY@0630 [facility] Administra
--- NOTE | 2023-05-19 10:32 | ECG_ITS ---
Measurements Intervals [place] Rate: 74 P: 53 CT: 143 QRS: 66 QRSD: 83 T: 57 QT: 398 QTc: 443 Interpretive Statements SINUS RHYTHM INCOMPLETE RIGHT BUNDLE BRANCH BLOCK BORDERLINE ECG COMPARED TO ECG 05/18/2023 21:48:28 SINUS RHYTHM NOW PRESENT Electronically Signed On 05-19-2023 11:43:55 WELFARE INVESTIGATOR by Jake Lloyd D.O.
--- NOTE | 2023-05-19 10:34 | PM.CNCAR ---
Assessment and Plan Assessment and plan (1) Atrial fibrillation with rapid ventricular response: Code(s): I48.91 - Unspecified atrial fibrillation Status: Acute Assessment and Plan: History of atrial fibrillation status post AFib ablation now with recurrence of atrial fibrillation with rapid ventricular response. He was placed on a diltiazem drip and converted to sinus rhythm this morning. 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 He should be discharged on Toprol XL 75 mg daily diltiazem drip can be discontinued 30 minutes after administration of oral metoprolol. Will check an echocardiogram would be okay for discharge later today if he remains stable And in sinus rhythm. (2) SVT (supraventricular tachycardia): Code(s): I47.1 - Supraventricular tachycardia Status: Acute Assessment and Plan: Status post SVT ablation. Outpatient follow-up with Dr. Kong History of Present Illness History of Present Illness Consult date/time: 05/19/23 10:34 Requesting physician: Susan Ramirez MD Consult reason: atrial fibrillation Reason For Visit: Atrial Fibrillation with Rapid Ventricular Respons Narrative: Renetta Montano is a 38-year-old male with SVT, atrial fibrillation, and hypothyroidism. This is a patient who is followed by Dr. Kong at [facility]. He has a history of both SVT and atrial fibrillation ablation and had been maintained on amiodarone in the past, but amiodarone had been stopped because of his thyroid function. He comes to the hospital now with recurrence of atrial fibrillation with rapid ventricular response. He was at work yesterday when he had a sudden onset of palpitations and some chest discomfort. In the emergency department he was found to be in atrial fibrillation and was placed on a diltiazem drip. He converted to sinus rhythm this morning just prior to me seeing him. At the time of my encounter with him he has no complaints aside from fatigue. Review of Systems Review of Systems: All systems reviewed & are unremarkable except as noted in HPI and below PMFSH Past Medical History Medical History Atrial fibrillation SVT (supraventricular tachycardia) Surgical History Surgical History H/O cardiac radiofrequency ablation Family History Family History Sibling SVT (supraventricular tachycardia) CHF (congestive heart failure) Mitral valve anterior leaflet prolapse Myocardial infarction Sudden Father SVT (supraventricular tachycardia) CHF (congestive heart failure) Mitral valve anterior leaflet prolapse Epilepsy Social History Social History Smoking status: Former smoker Do You Feel Safe in your Home?: Yes Lack of Transportation: No Lack of Food: Never True Current Housing: I Have Housing Concerned About Future Housing: No Difficulty Paying Gas/Electric Bills: No Difficulty Paying for Meds: No Currently Unemployed: No Education: Decline to Answer Difficulty w/ Childcare or Family Care: No Gender identity (if verbalized by the patient): Male Spiritual care concerns: Yes Meds Home Medications and Allergies Home Medications Medication Instructions Recorded Confirmed Type metoprolol tartrate 25 mg tablet 25 mg PO BID 06/04/19 05/19/23 History lisinopril 5 mg tablet 5 mg PO DAILY 03/28/21 05/19/23 History levothyroxine 150 mcg tablet 150 mcg PO DAILY 05/19/23 05/19/23 History magnesium oxide 400 mg (241.3 mg 400 mg PO DAILY 01
[2023-05-19] MEDS: METOPROLOL TARTRATE 25 MG TABLET PO (10:44)
--- NOTE | 2023-05-19 11:43 | ECG_ITS ---
Measurements Intervals [place] Rate: 194 P: ND: 0 QRS: 72 QRSD: 94 T: 29 QT: 205 QTc: 369 Interpretive Statements ATRIAL FIBRILLATION WITH RAPID VENTRICULAR RESPONSE INCOMPLETE RIGHT BUNDLE BRANCH BLOCK NONSPECIFIC ST & T-WAVE ABNORMALITY- ANTEROLAT/INF LEADS BASELINE ARTIFACT- I, II, III, AVL, V1-V3 ABNORMAL ECG COMPARED TO ECG 12/24/2022 01:56:20 ATRIAL FIBRILLATION NOW PRESENT INCOMPLETE RIGHT BUNDLE-BRANCH BLOCK NOW PRESENT Electronically Signed On 05-19-2023 12:24:44 [employer]UDIOVISUAL LEAD TECHNICIAN by Jake Lloyd D.O.
[2023-05-19 13:50] LABS: Free T4 Free Thyroxine 3.25 ng/mL (0.78-2.19)
--- NOTE | 2023-05-19 14:24 | PM.DS ---
DS: Admitting Diagnosis Discharge Date 05/19/23 Admitting Diagnosis Palpitations DS: Discharge Diagnosis Discharge Diagnosis (1) Atrial fibrillation with rapid ventricular response: Code(s): I48.91 - Unspecified atrial fibrillation Status: Acute Assessment and Plan: Appreciate cardiology consultation Patient currently in sinus rhythm Likely secondary to elevated levothyroxine dose with low TSH, will discharge on lower dose Metoprolol increased per Cardiology (2) SVT (supraventricular tachycardia): Code(s): I47.1 - Supraventricular tachycardia Status: Acute Assessment and Plan: Found to have atrial fibrillation after receiving Adenosine (3) Former smoker: Code(s): Z87.891 - Personal history of nicotine dependence Status: Acute Assessment and Plan: Unchanged Plan DVT prophylaxis with SCDs GI prophylaxis not indicated Code status full code DS: Summary Hospital Course Hospital Course: 38-year-old male with history of atrial fibrillation status post ablation and loop recorder implantation is presenting with dizziness and palpitations and was found to have a heart rate in the 200s and is currently being treated for AFib with RVR. History of atrial fibrillation status post AFib ablation now with recurrence of atrial fibrillation with rapid ventricular response.? He was placed on a diltiazem drip and converted to sinus rhythm this morning. ? 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 Kong ?TSH was low, will check a free T4 ?for now, will increase metoprolol dose and will shift him to Toprol XL.? He should be discharged on Toprol XL 75 mg daily ?diltiazem drip can be discontinued 30 minutes after administration of oral metoprolol. Check echo outpatient. Patient was discharged in stable condition with close outpatient follow-up. Please see above and med rec for details. Time Spent with Patient Time attestation: Total time spent providing and/or coordinating discharge services: Exam Narrative: General: No acute distress, alert and oriented per baseline HEENT: Atraumatic, normocephalic, mucous membranes moist CV: Regular rate and rhythm, S1, S2 Lungs: Clear to auscultation bilaterally, no rales or crackles noted, no wheezes, good air entry Abdomen: Soft, nontender, nondistended Extremities: Normal to inspection Skin: No rashes noted, no lesions or wounds seen Psych: Euthymic, normal affect DS: Data Data Completed and Pending Labs on day of discharge: Labs from last 24 hours 05/19/23 05/19/23 05/19/23 04:03 00:31 00:28 WBC RBC Hgb Hct MCV MCH MCHC RDW Plt Count MPV Immature Gran % (Auto) Neut % (Auto) Lymph % (Auto) [place] % (Auto) Eos % (Auto) Baso % (Auto) Lymph # (Auto) [place] # (Auto) Eos # (Auto) Baso # (Auto) Abs Immat Gran (auto) Absolute Neuts (auto) Absolute Nucleated RBC Nucleated RBC % PT INR APTT Sodium 134 L Potassium 4.8 Chloride 106 Carbon Dioxide 22 Anion Gap 6 L BUN 19 Creatinine 0.80 Estim Creat Clear Calc 166 Estimated GFR > 60 Glucose 100 Calcium 8.3 L Magnesium 3.0 H Total Bilirubin AST ALT Alkaline Phosphatase Troponin I 0.034 D Total Protein Albumin Lipase TSH Free T4 3.25 H Urine Opiates Screen Urine Methadone Screen Ur Barbiturates Screen Ur Phencyclidine Scrn Ur Amphetamine Screen U Benzodiazepines Scrn Urine Cocaine Screen U Cannabinoids Screen 05/18/23 05/18/23 22:47 21:38 WBC 4.8 RBC 4.46 L Hgb 13.6 L Hct 40.1 L MCV 89.9 MCH 30.5 MCHC 33.9 RDW 12.2 Plt Count 109 L MPV 11.4 H Immature Gran % (Auto) 0.2 Neut % (Auto) 46.1 Lymph % (Auto) 40.5 [place]
== END 2023-05-19 15:48 | disposition home or self-care (01) ==
LOC: ANHED 23:05 → ANHICU 05-19 05:11
PROVIDERS: Nurse Practitioner; Admitting Provider Internal Medicine; Emergency Provider Emergency Medicine; Visit Provider Student in an Organized Health Care Education/Training Program
DX: I48.91 Unspecified atrial fibrillation (principal); I45.10 Unspecified right bundle-branch block; I47.10 Supraventricular tachycardia, unspecified; Z95.818 Presence of other cardiac implants and grafts; Z98.890 Other specified postprocedural states; Z87.891 Personal history of nicotine dependence; Z79.899 Other long term (current) drug therapy; Z82.49 Family history of ischemic heart disease and other diseases of the circulatory system
CPT/HCPCS: 36415; 80048; 80053; 80307; 83690; 83735; 84439; 84443; 84484; 85025; 85610; 85730; 93005; 96365; 96366; 96367; 99285; A9270; G0378; G0379; J0153; J2060; J3475; J3480; J7030; J7050